=== PATIENT | female | born 1955 | race African-American/Black ===

== ENCOUNTER 2016-12-31 01:23 | Emergency (ER) | payer OTHER ==
[2016-12-31 02:00] VITALS: BP 145/86; PULSE 73; BMI 29.8
--- NOTE | 2016-12-31 02:18 | PDOC ---
History of Present Illness - General History Source: Patient Exam Limitations: No Limitations - History of Present Illness Initial Comments: 12/31/16 02:24 The patient is a 61 year old female, with a significant past medical history of anxiety, vertigo, palpitations, hypertension and hyperthyroidism, who presents to the emergency department with nausea and vomiting since 11pm today. She also complaints of a headache an dizziness, which she describes as mild, without radiation or modifying factors. She notes that when she stands up she gets more dizzy. She states that she has not taken her vertigo medication in a long time. The patient denies chest pain, shortness of breath, fever, chills, diarrhea and constipation. Denies dysuria, frequency, urgency and hematuria. Allergies: None Past surgical history: None reported Social history: No alcohol, tobacco or drug use reported <Sujit Rivera - Last Filed: 12/31/16 02:22> <Conchita Steel - Last Filed: 01/01/17 06:53> - General Chief Complaint: Nausea/Vomiting Stated Complaint: VOMITING Time Seen by Provider: 12/31/16 01:54 Past History <Sujit Rivera - Last Filed: 12/31/16 02:22> - Past Medical History Anemia: No Asthma: No Cancer: No Cardiac Disorders: Yes (PALPITATIONS,ARRHYTHMIAS) CVA: No COPD: No CHF: No Dementia: No Diabetes: No GI Disorders: No Disorders: No HTN: No Hypercholesterolemia: No Liver Disease: No Seizures: No Thyroid Disease: Yes (HYPERTHYRODISM) - Psycho/Social/Smoking Cessation Hx Suicidal Ideation: No Smoking History: Never smoked Have you smoked in the past 12 months: No Hx Alcohol Use: No Drug/Substance Use Hx: No Substance Use Type: None Hx Substance Use Treatment: No <Conchita Steel - Last Filed: 01/01/17 06:53> - Past Medical History Allergies/Adverse Reactions: Allergies Allergy/AdvReac Type Severity Reaction Status Date / Time aspirin AdvReac Verified 12/31/16 01:58 Home Medications: Ambulatory Orders Propranolol HCl [Inderal -] 10 mg PO BID #30 tablet 11/12/14 Brimonidine Tartrate/Timolol [Combigan 0.2%-0.5% Eye Drops] 1 drop OU BID Methimazole [Tapazole -] 10 mg PO Q12H tablet 08/14/15 Meclizine HCl [Antivert -] 25 mg PO QID #28 tablet 12/31/16 Review of Systems - Review of Systems Able to Perform ROS?: Yes Comments:: 12/31/16 02:24 GENERAL/CONSTITUTIONAL: No fever or chills. No weakness. HEAD, EYES, EARS, NOSE AND THROAT: No change in vision. No ear pain or discharge. No sore throat. CARDIOVASCULAR: No chest pain or shortness of breath RESPIRATORY: No cough, wheezing, or hemoptysis. GASTROINTESTINAL: (+) nausea, vomiting. No diarrhea or constipation. GENITOURINARY: No dysuria, frequency, or change in urination. MUSCULOSKELETAL: No joint or muscle swelling or pain. No neck or back pain. SKIN: No rash NEUROLOGIC: (+) Headache and dizziness. No loss of consciousness, or change in strength/sensation. ENDOCRINE: No increased thirst. No abnormal weight change HEMATOLOGIC/LYMPHATIC: No anemia, easy bleeding, or history of blood clots. ALLERGIC/IMMUNOLOGIC: No hives or skin allergy. <Sujit Rivera - Last Filed: 12/31/16 02:22> *Physical Exam - Vital Signs Last Vital Signs Temp Pulse Resp BP Pulse Ox 73 18 145/86 96 12/31/16 01:45 12/31/16 01:45 12/31/16 01:45 12/31/16 01:45 - Physical Exam Comments: 12/31/16 02:22 GENERAL: Awake, alert, and fully oriented, in no acute distress HEAD: No signs of trauma, normocephalic, atraumatic EYES: PERRLA, EOMI, sclera anicteric, conjunctiva clear ENT: Auricles normal inspection, hearing grossly normal, nares patent, oropharynx clear without exudates. Moist mucosa NECK: Normal ROM, supple, no lymphadenopathy, JVD, or masses LUNGS: No distress, speaks full sentences, clear to auscultation bilaterally HEART: Regular rate and rhythm, normal S1 and S2, no murmurs, rubs or gallops, peripheral pulses normal and equal bilaterally. ABDOMEN: Soft, nontender, normoactive bowel sounds. No guarding, no rebound. No masses EXTREMITIES: Normal inspection, Normal range of motion, no edema. No clubbing or cyanosis. NEUROLOGICAL: Cranial nerves II through XII grossly intact. Normal speech, normal gait, no focal sensorimotor deficits SKIN: Warm, Dry, normal turgor, no rashes or lesions noted. <Sujit Rivera - Last Filed: 12/31/16 02:22> - Vital Signs Last Vital Signs Temp Pulse Resp BP Pulse Ox 73 18 145/86 96 12/31/16 01:45 12/31/16 01:45 12/31/16 01:45 12/31/16 01:45 <Conchita Steel - Last Filed: 01/01/17 06:53> ED Treatment Course - LABORATORY CBC & Chemistry Diagram: 12/31/16 03:10 12/31/16 03:10 <Conchita Steel - Last Filed: 01/01/17 06:53> Medical Decision Making - Medical Decision Making 12/31/16 04:24 Patient Name: Cassi Coles THIS IS A PRELIMINARY REPORT FROM [facility] EXAM: CT head without contrast IMAGES: 336 DATE OF EXAM: 2016-12-31 02: 50:28.0 REASON FOR EXAM: COMPARISON: None. FINDINGS: There is cerebral atrophy. Mild chronic microvascular ischemic changes are suggested. No acute intracranial hemorrhage or acute infarction. No evidence for cerebellar mass. The visualized aspect of the paranasal sinuses and mastoid air cells are unremarkable. No acute fracture. THIS DOCUMENT HAS BEEN ELECTRONICALLY SIGNED 01/01/17 06:51 Pt comes with dizziness and vertiginous symptoms. She has no weakness and dizziness is positional. She is compliant with all her meds. She had a bout of vertigo a few years ago. Pt has no fever or chills. Her labs are normal, except for hypokalemia, secondary to the vomiting on account of the vertigo. Pt was hydrated and her electrolytes were repleted. Pt will be discharged home with meclizine. She is feeling better and she wants to go home. <Conchita Steel - Last Filed: 01/01/17 06:53> *DC/Admit/Observation/Transfer - Attestations Scribe Attestion: 12/31/16 02:22 Documentation prepared by Sujit Rivera, acting as medical apparatus model maker for Conchita Steel MD <Sujit Rivera - Last Filed: 12/31/16 02:22> - Discharge Dispostion Admit: No <Conchita Steel - Last Filed: 01/01/17 06:53> Diagnosis at time of Disposition: Dizziness, Vertigo, Vomiting, Hypokalemia - Discharge Dispostion Disposition: HOME Condition at time of disposition: Stable - Prescriptions Prescriptions: Meclizine HCl [Antivert -] 25 mg PO QID #28 tablet - Referrals Referrals: Bryn Chino [Primary Care Provider] - - Patient Instructions Printed Discharge Instructions: DI for Vomiting -- Adult, DI for Nausea -- Adult, Vertigo, Hypokalemia
[2016-12-31] MEDS ORDERED: FAMOTIDINE 20 MG/50 ML IVPB 50 ML IVPB ONE ×2 (02:20→02:45)
[2016-12-31] MEDS ORDERED: SODIUM CHLORIDE 0.9% 500 ML INFUS.BAG IV ONE (02:20)
[2016-12-31] MEDS ORDERED: METOCLOPRAMIDE HCL INJECTION 10 MG/2 ML VIAL IVPB ONE (02:28)
[2016-12-31] MEDS ORDERED: MECLIZINE HCL 25 MG TABLET (FP) PO ONE (02:29)
[2016-12-31] MEDS ORDERED: METOCLOPRAMIDE HCL INJECTION 10 MG/2 ML VIAL ONE (02:45)
[2016-12-31] MEDS ORDERED: MECLIZINE HCL 25 MG TABLET (FP) ONE (02:45)
[2016-12-31 03:20] LABS: BASOPHIL 0.4 % (0-2.0); EOSINOPHIL 1.2 % (0-4.5); MCH 29.6 pg (25.7-33.7); MCHC 34.4 g/dl (32.0-36.0); MEAN CELL VOLUME 85.9 fl (80-96); MEAN PLT VOLUME 8.4 fl (7.5-11.1); NEUTROPHILS 77.1 % (42.8-82.8); PLATELET COUNT 236 K/MM3 (134-434); RDW 15.3 % (11.6-15.6); WHITE BLOOD COUNT 9.9 K/mm3 (4.0-10.0)
[2016-12-31 03:42] LABS: ALBUMIN 3.9 g/dl (3.4-5.0); ANION GAP 9 (8-16); CALCIUM 8.5 mg/dL (8.5-10.1); CO2 30 mmol/L (21-32); CREATININE 0.8 mg/dL (0.55-1.02); GLUCOSE,RANDOM 133 mg/dL (74-106); SGOT/AST 14 U/L (15-37); SGPT/ALT 19 U/L (12-78); TOT PROT 7.1 g/dl (6.4-8.2)
[2016-12-31 03:52] LABS: ALK PHOS 92 U/L (45-117); BILIRUBIN,TOTAL 0.4 mg/dL (0.2-1.0); TROPONIN I < 0.02 ng/ml (0.00-0.05)
[2016-12-31] MEDS ORDERED: POTASSIUM CHLORIDE TABS 20 MEQ TABLET.ER (FP) PO ONE ×2 (04:01→05:04)
[2016-12-31] MEDS ORDERED: MAGNESIUM SULF 50% (8.12 MEQ/2 ML-1 GM VIAL) IVPB ONE (04:01)
[2016-12-31 04:13] LABS: INR 1.17 (0.82-1.09); PROTHROMBIN TIME (PATIENT) 12.9 SEC (9.98-11.88)
[2016-12-31] MEDS ORDERED: MAGNESIUM SULF 50% (8.12 MEQ/2 ML-1 GM VIAL) ONE (05:04)
--- NOTE | 2016-12-31 14:55 | EKG ---
Test Reason : Blood Pressure : / mmHG Vent. Rate : 070 BPM Atrial Rate : 070 BPM P-R Int : 180 ms QRS Dur : 092 ms QT Int : 408 ms P-R-T Axes : 067 001 016 degrees QTc Int : 440 ms NORMAL SINUS RHYTHM MINIMAL VOLTAGE CRITERIA FOR LVH, MAY BE NORMAL VARIANT BORDERLINE ECG WHEN COMPARED WITH ECG OF 12-AUG-2015 22:44, INCOMPLETE RIGHT BUNDLE BRANCH BLOCK IS NO LONGER PRESENT Confirmed by ERIKA STANLEY, DORA ([id number]) on 12/31/2016 2:54:54 PM Referred By: Confirmed By:DORA JAMES MD
== END 2016-12-31 06:29 | disposition home or self-care (01) ==
LOC: JER 01:23
PROC: 3E033GC Introduction of Other Therapeutic Substance into Peripheral Vein, Percutaneous Approach (ICD-10-PCS; principal; 2016-12-31)
DX: E87.6 Hypokalemia (principal); R42 Dizziness and giddiness; R11.0 Nausea; F41.9 Anxiety disorder, unspecified; E05.90 Thyrotoxicosis, unspecified without thyrotoxic crisis or storm
CPT/HCPCS: 36415; 70450-TC; 71020-TC; 80053; 82550; 84484; 85025; 85610; 93005; 93010; 96365; 96375; 99281-25; 99283-25

== ENCOUNTER 2021-03-16 06:47 | Emergency (ER) | payer OTHER ==
[2021-03-16 06:52] VITALS: BP 157/80; PULSE 89; TEMP 98.3; BMI 29.8
[2021-03-16] MEDS ORDERED: ACETAMINOPHEN 500 MG TABLET (FP) PO ONE (08:09)
[2021-03-16] MEDS ORDERED: ACETAMINOPHEN 500 MG TABLET (FP) ONE (08:11)
== END 2021-03-16 08:50 | disposition home or self-care (01) ==
LOC: JERFT 06:47 → JER 06:47 → JERFT 08:50
DX: S83.412A Sprain of medial collateral ligament of left knee, initial encounter (principal); X50.0XXA Overexertion from strenuous movement or load, initial encounter; Y92.815 Train as the place of occurrence of the external cause
CPT/HCPCS: 73562-TC-LT-FY; 99283-25